=== PATIENT | female | born 1955 | race Caucasian/White ===

== ENCOUNTER 2025-03-02 08:18 | Outpatient (AMB) | payer MEDICARE, SELFPAY ==
--- NOTE | 2025-03-02 08:23 | A.PHYSOV_ITS ---
Vital Signs 03/02/25 08:24 Height 5 ft 2 in Weight 185 lb BMI 33.8 Intake Visit Reasons: [facility]- LOW BACK PAIN W/RADICULOPATH Intake Note: Patient is a 69 year old female in office today as a new patient for low back pain. Patient states pain is on the left side back pain and some leg pain Station Engineer Chief Required: Yes Station Engineer Chief Language: [place] Station Engineer Chief Services: Station Engineer Chief Offered & Declined Allergies LUIS Inhibitors Allergy (Unknown, Verified 03/02/25 08:26) Unknown Latex, Natural Rubber Allergy (Unknown, Verified 03/02/25 08:26) Unknown UNKNOWN ANTIBIOTIC Allergy (Unknown, Uncoded 02/28/25 11:24) Unknown HPI Comments Details: History of Present Illness The patient is a 69-year-old individual presenting with back pain and suspected pinched nerve with onset of symptoms 1 year ago. The pain reportedly radiates to the groin and left leg is exacerbated by sitting and standing, with some relief when lying down. The patient has sought treatment from a chiropractor and massage therapy, and an X-ray was performed, which suggested an unclear finding requiring further investigation. Standing is more bothersome than sitting The patient reports that using a shopping cart provides some relief while walking, and there is no reported weakness in the legs. An MRI was ordered but initially denied by insurance due to insufficient documentation of prior treatments. Treatment up to this date included chiropractic treatments, massage therapy, ongoing physician guided home exercises for 1 year. I reviewed her primary care notes. I reviewed independently images of lumbosacral spine x-rays, they were noncontributory. She had to go to the emergency room secondary to the fall. She has been taking pain medications prescription and [id number]. She has been applying diclofenac gel to her lower back. Level of pain 10/20. Pain Description - Onset: Pain radiates to the groin - Quality: Described as a pinching sensation - Location: Primarily in the back, radiating to the groin - Exacerbating factors: Sitting and standing - Relieving factors: Lying down, using a shopping cart while walking Results - Imaging: X-ray performed, unclear findings requiring further investigation [facility] Medical History (Updated 03/02/25 @ 08:52 by Mehul Gomez DO) Lumbar radiculitis Spinal stenosis, lumbar region with neurogenic claudication Lumbar disc herniation Surgical History (Updated 03/02/25 @ 08:27 by Eri Diggs MA) History of bladder surgery (Unknown) History of hernia repair (Unknown) H/O: hysterectomy (Unknown) Social History (Updated 03/02/25 @ 08:28 by Eri Diggs MA) Household Members: Spouse Alcohol intake: current Alcohol intake frequency: does not drink Patient Tobacco Use Status: Never used Tobacco Current occupational status: retired Review of Systems Narrative Review of Systems - Musculoskeletal: Reports back pain radiating to the groin, denies leg weakness Denies change in bowel bladder habits, denies fever or chills, denies uncontrolled depression or suicidal ideation. Physical Exam Exam Exam: Physical Exam Patient appears to be in no acute distress, appropriately conversant oriented. Gait was antalgic on the left side. Dural tension signs were strongly positive for left lower extremity. Lumbar extension was restricted. Neurological examination reveals weakness of left ankle dorsiflexion 4/5. Bilateral patellar and Achilles reflexes were uniformly diminished, but symmetric. Heel walk was restricted on the left side secondary to weakness she was able to perform toe walk with support for balance. Tenderness with palpation over lower lumbar spinous processes. Mild tenderness with palpation over left SI sulcus. SI provocative maneuvers were negative. Vital Signs: BMI result Body Mass Index 33.8 Assessment & Plan Assessment & Plan (1) Lumbar disc herniation: Code(s): M51.26 - Other intervertebral disc displacement, lumbar region Category: Medical (2) Spinal stenosis, lumbar region with neurogenic claudication: Code(s): M48.062 - Spinal stenosis, lumbar region with neurogenic claudication Category: Medical (3) Lumbar radiculitis: Code(s): M54.16 - Radiculopathy, lumbar region Category: Medical Plan Pain Management - Analgesia: She will continue to take her pain medications as previously. - Adverse Effects: No side effects from pain medications discussed - Activities of Daily Living: Pain affects sitting and standing, relief with lying down and using a shopping cart - Aberrant Drug Related Behaviors: No signs of medication abuse or misuse discussed Plan Patient was informed and verbally consented to the use of an ambient scribe for clinic note documentation during this visit. 1. Lumbar radiculitis The patient is suspected to have a pinched nerve, with symptoms including back pain radiating to the groin, exacerbated by sitting and standing. An MRI was ordered to further investigate the condition, but it was initially denied by insurance due to insufficient documentation of prior treatments. The plan includes resubmitting the MRI request with appropriate documentation and considering alternative diagnostic options if necessary. 2. Possible Spinal Canal Narrowing There is a suspicion of spinal canal narrowing, which could be contributing to the patient's symptoms. Further imaging, such as an MRI, is necessary to confirm this diagnosis and guide treatment. 3. Possible Disc Herniation The possibility of a disc herniation is considered due to the nature of the patient's symptoms. An MRI is required to confirm the presence of a herniated disc and to plan appropriate management. Discussion Notes During the visit, we discussed the possibility of a pinched nerve, spinal canal narrowing, and disc herniation as potential causes of the patient's symptoms. I explained the need for an MRI to confirm these conditions and the importance of proper documentation for insurance approval. We also talked about the patient's current management strategies, including the use of a shopping cart for relief while walking. Patient has failed extensive conservative care including chiropractic treatments, massage therapy and physician guided home exercises and use of oral pain medications. Minimally invasive care is being considered based on MRI results. Patient Instructions - Follow up with the insurance company to ensure MRI approval. - Use a shopping cart for support while walking to alleviate pain. - Avoid activities that exacerbate pain, such as prolonged sitting or standing. Orders: Orders MR lumbar spine wo con Today M48.062 - Spinal stenosis, lumbar region with neurogenic claudication, M51.26 - Other intervertebral disc displacement, lumbar region, M54.16 - Radiculopathy, lumbar region Coding Level of Care Code Tele New Pt Level 4 (68988) Complex EM visit Add On G2211 Diagnoses Lumbar disc herniation M51.26 Spinal stenosis, lumbar region with neurogenic claudication M48.062 Lumbar radiculitis M54.16
[2025-03-02 08:24] VITALS: BMI 33.8
== END 2025-03-02 08:57 | disposition home or self-care (01) ==
LOC: HO.HPHYS 08:18
PROVIDERS: PCP Physician Assistant Medical; Visit Provider Physical Medicine & Rehabilitation
DX: M51.26 Other intervertebral disc displacement, lumbar region (principal); M48.062 Spinal stenosis, lumbar region with neurogenic claudication; M54.16 Radiculopathy, lumbar region
CPT/HCPCS: 99204; G2211

== ENCOUNTER → 2025-03-02 08:18 | Outpatient (BNVA) | payer MEDICARE, SELFPAY | PROVIDERS: PCP Physician Assistant Medical; Visit Provider Physical Medicine & Rehabilitation | DX: M48.062 Spinal stenosis, lumbar region with neurogenic claudication (principal); M51.26 Other intervertebral disc displacement, lumbar region; M54.16 Radiculopathy, lumbar region | CPT/HCPCS: 99202 ==